=== PATIENT | male | born 1970 | race Hispanic/Latino ===

== ENCOUNTER 2017-07-15 14:34 | Emergency (ER) | payer BC ==
[~2017-07-15] VITALS: Ht 165.1 cm; Wt 92.4 kg
[2017-07-15] MEDS ORDERED: LISINOPRIL40 MG PO (15:28)
[2017-07-15 15:40] VITALS: BP 145/95
== END 2017-07-15 15:46 | disposition home or self-care (01) ==
LOC: EME 14:34
DX: Z76.0 Encounter for issue of repeat prescription (principal); I10 Essential (primary) hypertension
CPT/HCPCS: 99281; 99284

== ENCOUNTER 2017-10-19 09:02 | Emergency (ER) | payer BC ==
[~2017-10-19] VITALS: Ht 165.1 cm; Wt 93.9 kg
[~2017-10-19 09:02] MED LIST: LISINOPRIL40 MG PO
[2017-10-19 10:24] LABS: EOSINOPHIL (%) 1.6 % (0-5); EOSINOPHIL COUNT 0.1 K/uL (0-0.3); IMMATURE GRANULOCYTE (%) 0.2 % (0.0-0.7); INSTRUMENT ABS NEUTROPHIL CT 2.4 K/uL; LYMPHOCYTE COUNT 1.4 K/uL (1.0-2.8); MCH 26.2 PG (29.0-34.0); MCHC 33.6 G/DL (30.0-36.0); MEAN PLAT.VOLUME 9.4 uM^3 (9.0-12.4); MONOCYTE (%) 9.8 % (3-12); MONOCYTE COUNT 0.4 K/uL (0-0.8); NEUTROPHIL COUNT 2.4 K/uL (1.8-6.4); PLATELET COUNT 263 K/uL (156-360); RBC DIS.WIDTH-CV 13.3 % (11.8-14.6); RBC DIS.WIDTH-SD 37.7 % (39-53); RED BLOOD COUNT 5.77 M/uL (4.00-5.50); WHITE BLOOD COUNT 4.3 K/uL (4.1-10.2)
[2017-10-19 10:36] LABS: CHLORIDE 108 mEq/L (99-109); POTASSIUM 3.8 mEq/L (3.7-5.4); SODIUM 137 mEq/L (136-147)
[2017-10-19 10:38] LABS: GLUCOSE 94 mg/dL (70-99)
[2017-10-19 10:39] LABS: ANION GAP 6 MEQ/L (2-14)
[2017-10-19 10:42] LABS: ADD MIUA? NO; BILIRUBIN NEGATIVE; BLOOD NEGATIVE; COLOR YELLOW ((YELLOW)); GLUCOSE (STRIP) NEGATIVE; KETONES NEGATIVE; LEUKOCYTES NEGATIVE; NITRITE NEGATIVE; PROTEIN (STRIP) NEGATIVE; SPECIFIC GRAVITY 1.015 (1.000-1.030); UCUL ADDED? NO; UROBILINOGEN 0.2 MG/DL (0.2-1.0)
[2017-10-19 10:42] LABS: GFR ESTIMATE (CALCULATED) > 59 mL/min/
[2017-10-19 10:43] LABS: UREA NITROGEN (BUN) 11 mg/dL (9-23)
[2017-10-19] MEDS ORDERED: LISINOPRIL40 MG PO (10:59)
[2017-10-19 11:24] VITALS: BP 173/101
== END 2017-10-19 11:24 | disposition home or self-care (01) ==
LOC: EME 09:02
PROVIDERS: Physician Assistant
DX: I10 Essential (primary) hypertension (principal); Z76.0 Encounter for issue of repeat prescription
CPT/HCPCS: 80048; 81003; 85025; 93005; 99281; 99284

== ENCOUNTER 2018-03-28 20:09 | Emergency (ER) | payer OTHER ==
[~2018-03-28] VITALS: Ht 165.1 cm; Wt 94.6 kg
[2018-03-28 22:16] VITALS: BP 150/97
== END 2018-03-28 22:30 | disposition home or self-care (01) ==
LOC: EDSEX 20:09 → EME 20:09
DX: R51 Headache (principal); I10 Essential (primary) hypertension; G47.30 Sleep apnea, unspecified
CPT/HCPCS: 99281; 99284; J1100; J1885